=== PATIENT | male | born 1995 | race Caucasian/White ===

== ENCOUNTER 2018-01-14 17:42 | Emergency (ER) | payer SELFPAY ==
[2018-01-14] MEDS ORDERED: Bacitracin Oint 1 GM U/D Packet TOP ONE (19:29)
--- NOTE | 2018-01-14 19:35 | EDM.PDOC ---
ED HPI GENERAL MEDICAL PROBLEM - General Chief Complaint: General Stated Complaint: MEDICAL CLEARENCE Time Seen by Provider: 01/14/18 19:23 - History of Present Illness INITIAL COMMENTS - FREE TEXT/NARRATIVE: HISTORY AND PHYSICAL: History of present illness: The patient is a 22-year-old male who is here with police for medical clearance exam as he was arrested for underage drinking. The patient says he doesn't drink every day and he did drink today and he has had no abdominal pain nausea vomiting chest pain or shortness breath and no other systemic complaints. She says he did fall several times prior to being arrested but did not pass out or black out and has no headache pain. He has some scattered abrasions and superficial lacerations that he was concerned about but says that he likely would not be here if he were not under arrest. He is moving all extremities and has no extremity or back pain and the crime prevention police officer said that as long as he has been in custody he's been awake alert talkative and interactive. Review of systems: As per history of present illness and below otherwise all systems reviewed and negative. Past medical history: As per history of present illness and as reviewed below otherwise noncontributory. Surgical history: As per history of present illness and as reviewed below otherwise noncontributory. Social history: No reported history of drug or alcohol abuse. Family history: As per history of present illness and as reviewed below otherwise noncontributory. Physical exam: General: Well-developed well-nourished man who is nontoxic and vital signs are noted by me. He speaking clearly and easily in the ED and is cooperative. He is in handcuffs. His clothes are dirty HEENT: normocephalic, pupils reactive, negative for conjunctival pallor or scleral icterus, mucous membranes moist, throat clear, neck supple, nontender, trachea midline. At the left parietal scalp there is a superficial abrasion but no gross soft tissue swelling or scalp defects, at the left temporal hairline there is also a superficial abrasion without soft tissue swelling or bony defects. At the right upper eyelid there is a teeny superficial scratch/ laceration seen which is nontender and at the right nasal bridge there is a superficial laceration measuring approximately 5 mm which has no depth bleeding swelling or bony deformities. The facial bones are intact without tenderness defects or deformities, teeth and bite are intact, TMs are normal and there is no oliver sign, nasal bridge is stable and there is no nasal blood. Her are no midline step-offs in his defects of the cervical spine Lungs: Clear to auscultation, breath sounds equal bilaterally, chest nontender. Heart: S1S2, regular rate and rhythm no overt murmurs Abdomen: Soft, nondistended, nontender. Negative for masses or hepatosplenomegaly. Negative for costovertebral tenderness. Pelvis: Stable nontender. Genitourinary: Deferred. Rectal: Deferred. Extremities: Atraumatic, negative for cords or calf pain. Neurovascular unremarkable. Full range of motion without defects deformities or tenderness Neuro: Awake, alert, oriented. Cranial nerves II through XII unremarkable. Cerebellum unremarkable. Motor and sensory unremarkable throughout. Exam nonfocal. Back: There are no midline step-offs in his defects of the thoracic or lumbar spine no posterior rib or posterior pelvis tenderness and no skin abrasions defects or trauma seen Skin: On the chest wall abdomen there are no evidence of any skin trauma such as abrasions defects deformities or lacerations Diagnostics: [employer]: [] I did offer the patient has CT scan of his head and he feels that because he has no headache pain he does not feel that he needs to have the testing done. I talked to the officer that if anything changes he may return here and have this study performed his clinical picture evolves or changes. Impression: Medical clearance exam for incarceration, recent alcohol use, scattered abrasions to face and scalp stable, blunt head trauma without loss of consciousness Definitive disposition and diagnosis as appropriate pending reevaluation and review of above. - Related Data Allergies Allergy/AdvReac Type Severity Reaction Status Date / Time No Known Allergies Allergy Verified 01/14/18 19:27 Home Meds: Home Meds . [No Known Home Meds] 01/14/18 [History] ED ROS GENERAL - Review of Systems Review Of Systems: ROS reveals no pertinent complaints other than HPI. ED EXAM, GENERAL - Physical Exam Exam: See Below (See dictation) Course - Orders/Labs/Meds Orders: Active Orders 24 hr Category Date Time Status Blood Glucose Check, Bedside [RC] ONETIME Care 01/14/18 19:29 Active Bacitracin [Bacitracin Oint 1 GM] Med 01/14/18 19:29 Once 1 dose TOP ONETIME ONE Medication Orders Bacitracin (Bacitracin Oint 1 Gm) 1 dose TOP ONETIME ONE Stop: 01/14/18 19:30 Meds: Medications Generic Name Dose Route Start Last Admin Trade Name Kathryn PRN Reason Stop Dose Admin Bacitracin 1 dose 01/14/18 19:29 Bacitracin Oint 1 Gm TOP 01/14/18 19:30 ONETIME ONE Departure - Departure Time of Disposition: 19:34 Disposition: Home, Self-Care 01 Condition: Good Clinical Impression: Encounter for medical screening examination, Alcohol use Scalp contusion Qualifiers: Encounter type: initial encounter Qualified Code(s): S00.03XA - Contusion of scalp, initial encounter Facial contusion Qualifiers: Encounter type: initial encounter Qualified Code(s): S00.83XA - Contusion of other part of head, initial encounter - Discharge Information Additional Instructions: The following information is given to patients seen in the emergency department who are being discharged to home. This information is to outline your options for follow-up care. We provide all patients seen in our emergency department with a follow-up referral. The need for follow-up, as well as the timing and circumstances, are variable depending upon the specifics of your emergency department visit. If you don't have a primary care physician on staff, we will provide you with a referral. We always advise you to contact your personal physician following an emergency department visit to inform them of the circumstance of the visit and for follow-up with them and/or the need for any referrals to a consulting specialist. The emergency department will also refer you to a specialist when appropriate. This referral assures that you have the opportunity for followup care with a specialist. All of these measure are taken in an effort to provide you with optimal care, which includes your followup. Under all circumstances we always encourage you to contact your private physician who remains a resource for coordinating your care. When calling for followup care, please make the office aware that this follow-up is from your recent emergency room visit. If for any reason you are refused follow-up, please contact the [facility] emergency department at and ask to speak to the emergency department charge nurse. [facility] Primary care- Internal Medicine and [place] [address] Push hydration and return to ER as needed and as discussed. Please call and schedule a follow-up appointment the neck when you're able for further care and evaluation. - My Orders Last 24 Hours: My Active Orders 01/14/18 19:29 Blood Glucose Check, Bedside [RC] ONETIME Bacitracin [Bacitracin Oint 1 GM] 1 dose TOP ONETIME ONE - Assessment/Plan Last 24 Hours: My Active Orders 01/14/18 19:29 Blood Glucose Check, Bedside [RC] ONETIME Bacitracin [Bacitracin Oint 1 GM] 1 dose TOP ONETIME ONE
== END 2018-01-14 19:45 | disposition home or self-care (01) ==
LOC: MW.ED 17:42
DX: F10.129 Alcohol abuse with intoxication, unspecified (principal); S00.03XA Contusion of scalp, initial encounter; S00.83XA Contusion of other part of head, initial encounter; S09.90XA Unspecified injury of head, initial encounter; Z02.89 Encounter for other administrative examinations; Z88.0 Allergy status to penicillin; W19.XXXA Unspecified fall, initial encounter
CPT/HCPCS: 99282